=== PATIENT | male | born 1945 | race Hispanic/Latino ===

== ENCOUNTER 2021-05-08 11:05 | Outpatient (CLI) | payer MEDICARE ==
--- NOTE | 2021-05-08 15:46 | Magnetic Resonance Report ---
MRI lumbar spine without contrast INDICATION: Low back pain TECHNIQUE: Axial sagittal images FINDINGS: Scoliotic curvature the spine with advanced endplate changes at L2-L3. Conus appears normal . L1-L2: Disc desiccation with posterior disc bulge. There is some mild right lateral recess narrowing. No severe neuroforaminal narrowing or canal narrowing. L2-L3: Advanced endplate change and disc desiccation. Disc osteophyte asymmetric to the right. There is moderate right lateral recess narrowing. No severe neuroforaminal narrowing. L3-L4: Disc desiccation with endplate change. Right lateral disc osteophyte. No severe neuroforaminal narrowing. L4-L5: Disc desiccation with broad-based posterior disc bulge. Mild bilateral lateral recess narrowin g. No significant neuroforaminal narrowing. L5-S1: Disc desiccation with posterior disc bulge. Far left lateral disc bulges protrusion. Mild left lateral recess narrowing and left neuroforaminal narrowing. IMPRESSION: Multilevel discogenic degenerative change. Advanced endplate changes at L2-L3 and L3-L4. Please see a edna level description. Signer Name: Richie Nelson MD Signed: 05/08/2021 3:41 PM Workstation Name: [id number]
== END 2021-05-08 11:06 | disposition home or self-care (01) ==
LOC: MRI 11:05
PROVIDERS: ATTEND Orthopaedic Surgery Orthopaedic Surgery of the Spine
DX: M51.37 Other intervertebral disc degeneration, lumbosacral region (principal); M48.07 Spinal stenosis, lumbosacral region; M47.817 Spondylosis without myelopathy or radiculopathy, lumbosacral region
CPT/HCPCS: 72148